=== PATIENT | female | born 1945 | race Caucasian/White ===

== ENCOUNTER 2023-10-17 08:32 | Outpatient (CLI) | payer MEDICARE, SELFPAY | END 2023-10-17 08:33 | disposition home or self-care (01) | LOC: NFLDREF 10-19 10:57 | PROVIDERS: PCP Family Medicine; Referring Provider Family Medicine; Visit Provider Family Medicine | DX: I10 Essential (primary) hypertension (principal); E78.5 Hyperlipidemia, unspecified; E03.9 Hypothyroidism, unspecified; E11.65 Type 2 diabetes mellitus with hyperglycemia; Z79.84 Long term (current) use of oral hypoglycemic drugs | CPT/HCPCS: 80053; 80061; 82043; 82570; 84443 ==

== ENCOUNTER 2023-12-06 14:26 | Outpatient (CLI) | payer MEDICARE, SELFPAY | END 2023-12-06 14:27 | disposition home or self-care (01) | PROVIDERS: PCP Family Medicine; Visit Provider Emergency Medicine | DX: M19.041 Primary osteoarthritis, right hand (principal); E03.9 Hypothyroidism, unspecified; I10 Essential (primary) hypertension | CPT/HCPCS: 84550; 86140; 86200 ==

== ENCOUNTER 2023-12-14 12:38 | Outpatient (CLI) | payer MEDICARE, SELFPAY ==
--- NOTE | 2023-12-14 13:53 | W.ANESCHARGE ---
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
--- NOTE | 2023-12-14 14:16 | W.ANESCHARGE ---
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
== END 2023-12-14 12:39 | disposition home or self-care (01) ==
LOC: OP CLINIC 12:39
PROVIDERS: PCP Family Medicine; Visit Provider Surgery
DX: K21.9 Gastro-esophageal reflux disease without esophagitis (principal); K31.7 Polyp of stomach and duodenum
CPT/HCPCS: 00813; 43239; 45385; 88305; 99100; J2704; J3490

== ENCOUNTER 2024-05-01 12:35 | Outpatient (CLI) | payer MEDICARE, SELFPAY | END 2024-05-01 12:36 | disposition home or self-care (01) | PROVIDERS: PCP Family Medicine; Visit Provider Family Medicine | DX: Z12.31 Encounter for screening mammogram for malignant neoplasm of breast (principal); Z13.820 Encounter for screening for osteoporosis; Z78.0 Asymptomatic menopausal state | CPT/HCPCS: 77063; 77067; 77080 ==

== ENCOUNTER 2024-11-20 08:42 | Outpatient (CLI) | payer MEDICARE, SELFPAY | END 2024-11-20 08:43 | disposition home or self-care (01) | LOC: NFLDREF 11-25 18:22 | PROVIDERS: PCP Family Medicine; Referring Provider Family Medicine; Visit Provider Family Medicine | DX: I10 Essential (primary) hypertension (principal); E03.9 Hypothyroidism, unspecified; E78.5 Hyperlipidemia, unspecified; E11.9 Type 2 diabetes mellitus without complications | CPT/HCPCS: 80053; 80061; 82043; 82570; 84443 ==